=== PATIENT | male | born 1980 | race Caucasian/White ===

== ENCOUNTER 2019-07-26 10:37 | Emergency (ER) | payer OTHER ==
[2019-07-26 10:59] VITALS: TEMP 98.4; BMI 29.8
--- NOTE | 2019-07-26 11:46 | PDOC ---
History of Present Illness - General Chief Complaint: Injury Stated Complaint: TWISTED RIGHT KNEE AT WORK Time Seen by Provider: 07/26/19 10:52 History Source: Patient Exam Limitations: No Limitations - History of Present Illness Initial Comments: 07/26/19 11:41 38y M hx of htn presents with R knee pain. Patient states he was in his usual state of health was exiting an SUV place his right leg On the ground and when he Tried to stand up and felt like his leg gave out and was swept out from under him, He was able to hold onto the door handle with his arms and did not fall out of the car was able to gently lowered himself to the ground. Patient notes that his pain is worse in the back of the right knee, The pain is worse with knee flexion. The patient denies any focal numbness, tingling, weakness, denies any radiation of the pain he denies any headache, neck pain, back pain, hip pain, Ankle pain. Patient took some Motrin prior to arrival and notes that is feeling slightly better. The patient denies any other symptoms including chest pain, shortness of breath , nausea, vomiting. There was no head injury or LOC Exam: GENERAL: The patient is awake, alert, and fully oriented, Nontoxic - in no acute distress. HEAD: Normocephalic, atraumatic. EXTREMITIES: Normal range of motion, No discomfort with passive or active range of motion on the bilateral hips, knees, ankles. On R knee exam. Patient does endorse some mild medial posterior right knee pain with extremes of knee flexion , Neurovascularly intact distally SKIN: Warm, Dry, normal turgor, Superficial abrasion on the anterior knee Suspect possible knee strain, Doubt fracture will obtain x-ray Past History - Past Medical History Allergies/Adverse Reactions: Allergies Allergy/AdvReac Type Severity Reaction Status Date / Time No Known Allergies Allergy Unverified 07/26/19 10:39 Home Medications: Ambulatory Orders Amlodipine Besylate 5 mg PO DAILY 07/26/19 Valsartan [Diovan] 320 mg PO DAILY 07/26/19 COPD: No HTN: Yes - Psycho Social/Smoking Cessation Hx Smoking History: Never smoked Information on smoking cessation initiated: No Hx Alcohol Use: Yes (SOCIAL) Drug/Substance Use Hx: No *Physical Exam - Vital Signs Last Vital Signs Temp Pulse Resp BP Pulse Ox 98.4 F 70 16 158/114 H 100 07/26/19 10:38 07/26/19 10:38 07/26/19 10:38 07/26/19 10:38 07/26/19 10:38 Medical Decision Making - Medical Decision Making 07/26/19 12:46 X-ray negative for fracture, the patient is ambulatory will discharge patient follow-up with his primary care doctor Return precautions were discussed, supportive management at home including elevation, rest, ice, NSAIDs. I discussed the physical exam findings, ancillary test results and final diagnoses with the patient. I answered all of the patient's questions. The patient was satisfied with the care received and felt comfortable with the discharge plan and treatment plan. The patient will call their primary care physician within 24 hours to arrange follow-up and will return to the Emergency Department with any new, persistent or worsening symptoms. Discharge - Discharge Information Problems reviewed: Yes Clinical Impression/Diagnosis: Strain of right knee Qualifiers: Encounter type: initial encounter Qualified Code(s): S86.911A - Strain of unspecified muscle(s) and tendon(s) at lower leg level, right leg, initial encounter Condition: Improved Disposition: HOME - Admission No - Follow up/Referral Referrals: Julio Erwin DO [Staff Physician] - Chace Michaud MD [Staff Physician] - - Patient Discharge Instructions Patient Printed Discharge Instructions: DI for Knee Pain Additional Instructions: Return to the emergency department immediately with ANY new, persistent or worsening symptoms. You MUST call and follow up with your doctor In 5 to 6 days for further evaluation of your symptoms. Results were discussed with you. Please make sure your doctor reviews the results of your emergency evaluation. Your Emergency Department visit is not complete without a follow up with your doctor. Print Language: [place] - Post Discharge Activity Work/Back to School Note: Back to Work
[2019-07-26 11:47] VITALS: BP 162/113; PULSE 64
== END 2019-07-26 13:02 | disposition home or self-care (01) ==
LOC: FER 10:37
DX: S86.911A Strain of unspecified muscle(s) and tendon(s) at lower leg level, right leg, initial encounter (principal); I10 Essential (primary) hypertension; X58.XXXA Exposure to other specified factors, initial encounter; Y93.89 Activity, other specified; Y92.89 Other specified places as the place of occurrence of the external cause; Y99.0 Civilian activity done for income or pay
CPT/HCPCS: 73562-TC-RT-FY; 99283-25